=== PATIENT | female | born 1995 | race Caucasian/White ===

== ENCOUNTER 2019-02-22 18:30 | Emergency (ER) | payer BC ==
[2019-02-22] MEDS ORDERED: HYDROXYCHLOROQUINE (18:36)
[2019-02-22] MEDS ORDERED: SYNTHROID125 MCG PO (18:36)
[2019-02-22] MEDS ORDERED: LATUDA40 MG PO (18:39)
[2019-02-22] MEDS ORDERED: METHOTREXATE2.5 MG PO (18:39)
[2019-02-22] MEDS ORDERED: INDERAL 40 MG T40 MG PO (18:40)
[2019-02-22 20:02] LABS: BASOPHILS 0.2 % (0-2); EOSINOPHILS 0.8 % (0-7); HEMATOCRIT 36.7 % (36.0-48.0); IMMATURE GRANULOCYTES 0.2 % (0-5); MCH 27.8 pg (26.0-34.0); MCHC 32.7 g/dL (31.0-37.0); MEAN PLATELET VOLUME 9.3 fL (7.4-10.4); MONOCYTES 5.5 % (2-11); NEUTROPHILS 74.3 % (40-80); PLATELET COUNT 323 10x3/uL (130-400); RBC 4.32 10x6/uL (4.00-5.40); WBC 12.2 10x3/uL (4.8-10.8)
[2019-02-22 20:11] LABS: CALC OSMOLALITY 275 mosm/kg (275-300); CALCIUM 8.6 mg/dL (8.5-10.1); CARBON DIOXIDE 24.5 mmol/L (21.0-32.0); CHLORIDE - SERUM 104 mmol/L (98-107); CREATININE - SERUM 0.9 mg/dL (0.6-1.3); GLUCOSE 86 mg/dL (74-106); POTASSIUM - SERUM 3.7 mmol/L (3.5-5.1); SODIUM 140 mmol/L (136-145); UREA NITROGEN 7 mg/dL (7-18); eGFR NON AFRICAN AMERICAN 81 mL/min (90-120)
[2019-02-22] MEDS ORDERED: KEFLEX500 MG PO (20:20)
[2019-02-22] MEDS ORDERED: CLEOCIN HCL300 MG PO (20:20)
[2019-02-22] MEDS ORDERED: HYDROCODON-ACE1 EAC2 PO (20:21)
[2019-02-22 20:55] VITALS: BP 143/85
== END 2019-02-22 20:55 | disposition home or self-care (01) ==
LOC: D.ER 18:30
PROVIDERS: Family Medicine
DX: L02.31 Cutaneous abscess of buttock (principal)

== ENCOUNTER 2019-07-30 23:39 | Emergency (ER) | payer BC ==
[~2019-07-30] VITALS: Ht 175.3 cm; Wt 150.0 kg
[~2019-07-30 23:39] MED LIST: CLEOCIN HCL300 MG PO; HYDROCODON-ACE1 EAC2 PO; HYDROXYCHLOROQUINE; INDERAL 40 MG T40 MG PO; KEFLEX500 MG PO; LATUDA40 MG PO; METHOTREXATE2.5 MG PO; SYNTHROID125 MCG PO
[2019-07-30 23:49] VITALS: Ht 175.3 cm; Wt 150.0 kg
[2019-07-31 00:15] LABS: BASOPHILS 0.1 % (0-2); EOSINOPHILS 0.2 % (0-7); HEMATOCRIT 46.2 % (36.0-48.0); HEMOGLOBIN 15.6 g/dL (12-16); IMMATURE GRANULOCYTES 0.4 % (0-5); LYMPHOCYTES 19.4 % (15-50); MCH 30.5 pg (26.0-34.0); MCHC 33.8 g/dL (31.0-37.0); MCV 90.2 fL (80.0-100.0); MEAN PLATELET VOLUME 9.4 fL (7.4-10.4); MONOCYTES 6.6 % (2-11); NEUTROPHILS 73.3 % (40-80); PLATELET COUNT 398 10x3/uL (130-400); RBC 5.12 10x6/uL (4.00-5.40); RDW 14.3 % (11.5-14.5); WBC 16.6 10x3/uL (4.8-10.8)
[2019-07-31 00:23] LABS: CALC OSMOLALITY 277 mosm/kg (275-300); CALCIUM 9.7 mg/dL (8.5-10.1); CARBON DIOXIDE 26.5 mmol/L (21.0-32.0); CHLORIDE - SERUM 102 mmol/L (98-107); CREATININE - SERUM 0.8 mg/dL (0.6-1.3); GLUCOSE 88 mg/dL (74-106); POTASSIUM - SERUM 4.1 mmol/L (3.5-5.1); SODIUM 140 mmol/L (136-145); UREA NITROGEN 13 mg/dL (7-18); eGFR NON AFRICAN AMERICAN > 90 mL/min (90-120)
[2019-07-31] MEDS ORDERED: STERAPRED DS 1010 MG PO (00:26)
[2019-07-31] MEDS ORDERED: PROMETH-CODEIN 65 ML PO (00:26)
[2019-07-31] MEDS ORDERED: MUCINEX DM ER1 EAC1 PO (00:26)
[2019-07-31 00:50] VITALS: BP 131/65
== END 2019-07-31 00:50 | disposition home or self-care (01) ==
LOC: D.ER 23:39
PROVIDERS: Family Medicine
DX: J40 Bronchitis, not specified as acute or chronic (principal); E07.9 Disorder of thyroid, unspecified

== ENCOUNTER 2019-09-05 00:22 | Emergency (ER) | payer BC ==
[~2019-09-05] VITALS: Ht 175.3 cm; Wt 149.7 kg
[~2019-09-05 00:22] MED LIST changes: +MUCINEX DM ER1 EAC1 PO; +PROMETH-CODEIN 65 ML PO; +STERAPRED DS 1010 MG PO
[2019-09-05 00:30] VITALS: BP 130/77; Ht 175.3 cm; Wt 149.7 kg
[2019-09-05] MEDS ORDERED: ZYPREXA10 MG PO (00:34)
[2019-09-05] MEDS ORDERED: HYDROCODON-ACE1 EAC2 PO (00:44)
== END 2019-09-05 01:27 | disposition home or self-care (01) ==
LOC: D.ER 00:22
DX: M54.5 Low back pain (principal); M54.10 Radiculopathy, site unspecified; E07.9 Disorder of thyroid, unspecified

== ENCOUNTER 2019-09-13 16:28 | Emergency (ER) | payer MEDICAID ==
[~2019-09-13] VITALS: Ht 175.3 cm; Wt 150.0 kg
[~2019-09-13 16:28] MED LIST changes: +ZYPREXA10 MG PO
[2019-09-13 16:35] VITALS: Ht 175.3 cm; Wt 150.0 kg
[2019-09-13] MEDS ORDERED: NEURONTIN 300300 MG PO (17:57)
[2019-09-13] MEDS ORDERED: VALIUM 2 MG TAB2 MG PO (17:57)
[2019-09-13] MEDS ORDERED: LIDODERM 5 %1 PATCH TP (17:57)
[2019-09-13 18:44] VITALS: BP 134/89
== END 2019-09-13 18:44 | disposition home or self-care (01) ==
LOC: D.ER 16:28
DX: S39.012A Strain of muscle, fascia and tendon of lower back, initial encounter (principal); M54.31 Sciatica, right side; X50.1XXA Overexertion from prolonged static or awkward postures, initial encounter; Y93.9 Activity, unspecified; Y92.9 Unspecified place or not applicable

== ENCOUNTER 2021-02-18 22:16 | Emergency (ER) | payer BC ==
[~2021-02-18 22:16] MED LIST changes: +LIDODERM 5 %1 PATCH TP; +MACROBID100 MG PO; +NEURONTIN 300300 MG PO; +VALIUM 2 MG TAB2 MG PO; +VALIUM5 MG PO
[2021-02-18 22:32] VITALS: BP 157/97; Ht 175.3 cm
[2021-02-18 22:54] LABS: BASOPHILS 0.6 % (0-2); EOSINOPHILS 0.9 % (0-7); HEMATOCRIT 42.5 % (36.0-48.0); HEMOGLOBIN 14.1 g/dL (12-16); LYMPHOCYTES 15.3 % (15-50); MCH 29.7 pg (26.0-34.0); MCHC 33.1 g/dL (31.0-37.0); MCV 89.5 fL (80.0-100.0); MEAN PLATELET VOLUME 7.5 fL (7.4-10.4); MONOCYTES 6.4 % (2-11); NEUTROPHILS 76.8 % (40-80); PLATELET COUNT 343 10x3/uL (130-400); RBC 4.75 10x6/uL (4.00-5.40); RDW 16.3 % (11.5-14.5); WBC 12.2 10x3/uL (4.8-10.8)
[2021-02-18 22:59] LABS: CALC OSMOLALITY 280 mosm/kg (275-300); CALCIUM 8.7 mg/dL (8.5-10.1); CARBON DIOXIDE 26.6 mmol/L (21.0-32.0); CHLORIDE - SERUM 105 mmol/L (98-107); CREATININE - SERUM 0.9 mg/dL (0.6-1.3); GLUCOSE 111 mg/dL (74-106); POTASSIUM - SERUM 3.7 mmol/L (3.5-5.1); SODIUM 141 mmol/L (136-145); UREA NITROGEN 10 mg/dL (7-18); eGFR NON AFRICAN AMERICAN 80 mL/min (90-120)
[2021-02-18 23:05] LABS: ALBUMIN 3.5 g/dL (3.4-5.0); ALKALINE PHOSPHATASE 103 U/L (30-120); ALT (SGPT) 82 U/L (10-68); BILIRUBIN - TOTAL 0.34 mg/dL (0.2-1.3); PROTEIN - SERUM 7.8 g/dL (6.4-8.2)
[2021-02-18 23:08] LABS: HCG URINE NEGATIVE (NEGATIVE)
[2021-02-18 23:12] LABS: BACTERIA MOD HPF (<MOD); BILIRUBIN NEGATIVE (NEGATIVE); KETONE NEGATIVE mg/dL (< 1+); NITRITE NEGATIVE (NEGATIVE); SQUAMOUS EPITHELIAL 20 HPF (0-4); UDS - AMPHET NEGATIVE QUAL (NEGATIVE); UDS - BARB NEGATIVE QUAL (NEGATIVE); UDS - BENZO POSITIVE QUAL (NEGATIVE); UDS - COCAINE NEGATIVE QUAL (NEGATIVE); UDS - OPIATE NEGATIVE QUAL (NEGATIVE); UDS - PCP NEGATIVE QUAL (NEGATIVE); UDS - THC POSITIVE QUAL (NEGATIVE); UROBILINOGEN 4 mg/dL (< 2); WHITE CELLS - URINE 35 HPF (0-4)
[2021-02-19] MEDS ORDERED: MACROBID100 MG PO (00:10)
[2021-02-19] MEDS ORDERED: ATIVAN1 MG PO (06:41)
== END 2021-02-19 06:57 | disposition home or self-care (01) ==
LOC: D.ER 22:16
PROVIDERS: Family Medicine
DX: F32.9 Major depressive disorder, single episode, unspecified (principal); R44.0 Auditory hallucinations; F43.10 Post-traumatic stress disorder, unspecified; N39.0 Urinary tract infection, site not specified; R45.851 Suicidal ideations

== ENCOUNTER → 2021-02-19 | Emergency (ER) | payer BC ==
[~2021-02-19] VITALS: Ht 175.3 cm; Wt 159.1 kg
[~2021-02-19] MED LIST changes: +ATIVAN1 MG PO
[2021-02-19 22:20] VITALS: BP 142/81; Ht 175.3 cm; Wt 159.1 kg
[2021-02-19 23:08] LABS: HCG URINE NEGATIVE (NEGATIVE)
[2021-02-19 23:12] LABS: BASOPHILS 0.7 % (0-2); EOSINOPHILS 0.2 % (0-7); HEMATOCRIT 40.7 % (36.0-48.0); HEMOGLOBIN 13.3 g/dL (12-16); LYMPHOCYTES 18.2 % (15-50); MCH 29.5 pg (26.0-34.0); MCHC 32.6 g/dL (31.0-37.0); MCV 90.5 fL (80.0-100.0); MEAN PLATELET VOLUME 7.7 fL (7.4-10.4); MONOCYTES 6.2 % (2-11); NEUTROPHILS 74.7 % (40-80); PLATELET COUNT 315 10x3/uL (130-400)
[2021-02-19 23:13] LABS: BACTERIA MOD HPF (<MOD); BILIRUBIN NEGATIVE (NEGATIVE); KETONE TRACE mg/dL (< 1+); NITRITE NEGATIVE (NEGATIVE); SQUAMOUS EPITHELIAL 9 HPF (0-4); UROBILINOGEN 3 mg/dL (< 2); WHITE CELLS - URINE 20 HPF (0-4)
[2021-02-19 23:14] LABS: UDS - AMPHET NEGATIVE QUAL (NEGATIVE); UDS - BARB NEGATIVE QUAL (NEGATIVE); UDS - BENZO POSITIVE QUAL (NEGATIVE); UDS - COCAINE NEGATIVE QUAL (NEGATIVE); UDS - OPIATE NEGATIVE QUAL (NEGATIVE); UDS - PCP NEGATIVE QUAL (NEGATIVE); UDS - THC POSITIVE QUAL (NEGATIVE)
[2021-02-19 23:29] LABS: ANION GAP 14.7 mmol/L (8-16); CALCIUM 8.7 mg/dL (8.5-10.1); CARBON DIOXIDE 24.5 mmol/L (21.0-32.0); POTASSIUM - SERUM 3.2 mmol/L (3.5-5.1)
[2021-02-19 23:35] LABS: ALBUMIN 3.3 g/dL (3.4-5.0); BILIRUBIN - TOTAL 0.21 mg/dL (0.2-1.3); MAGNESIUM - SERUM 1.9 mg/dL (1.8-2.4); PROTEIN - SERUM 7.4 g/dL (6.4-8.2)
--- NOTE | 2021-02-20 00:56 | NUR ---
DR. ORTEZ NOTIFIED AND SITTER ORDERED. SITTER AT BEDSIDE. NOTIFIED CHARGE NURSE AND ATTENDING IN REGARDS TO ASSESSMENT FINDINGS. RESOURCES GIVEN TO PT AND SAFETY PLAN INTIATED.
== END | disposition home or self-care (01) ==
LOC: D.ER 21:59
PROVIDERS: Family Medicine
DX: F43.10 Post-traumatic stress disorder, unspecified (principal); F31.9 Bipolar disorder, unspecified; R45.851 Suicidal ideations